=== PATIENT | female | born 1950 | race Caucasian/White ===

== ENCOUNTER → 2017-03-13 | Outpatient (CLI) | payer BC ==
[~2017-03-13] MED LIST: CITRACAL + D CA1 TAB PO; FOSAMAX 70MG TA70 MG PO; GALZIN25 MG PO; NORITATE1% TOP
== END ==
LOC: MC.RAD 14:11
DX: Z12.31 Encounter for screening mammogram for malignant neoplasm of breast (principal)

== ENCOUNTER 2017-06-04 13:09 | Day surgery (SDC) | payer BC ==
[~2017-06-04] VITALS: Ht 162.6 cm; Wt 71.0 kg
[2017-06-04 13:54] VITALS: BP 130/86; PULSE 67; TEMP 98.1
[2017-06-04] MEDS ORDERED: CITRACAL + D CA1 TAB PO (14:13)
[2017-06-04] MEDS ORDERED: GALZIN25 MG PO (14:14)
[2017-06-04] MEDS ORDERED: FOSAMAX 70MG TA70 MG PO (14:15)
[2017-06-04] MEDS ORDERED: NORITATE1% TOP (14:15)
[2017-06-04 15:35] VITALS: BP 84/64; PULSE 52
[2017-06-04 15:50] VITALS: BP 92/64; PULSE 63
[2017-06-04 16:05] VITALS: BP 96/62; PULSE 57
[2017-06-04 16:27] VITALS: BP 92/57; PULSE 53
== END 2017-06-04 16:20 | disposition home or self-care (01) ==
LOC: SDCO 13:09 → OR 13:15 → SDCO 13:15
DX: Z12.11 Encounter for screening for malignant neoplasm of colon (principal); D69.6 Thrombocytopenia, unspecified; Z78.0 Asymptomatic menopausal state; D25.9 Leiomyoma of uterus, unspecified; L71.9 Rosacea, unspecified; M81.0 Age-related osteoporosis without current pathological fracture; E66.3 Overweight; Z68.26 Body mass index [BMI] 26.0-26.9, adult; E78.00 Pure hypercholesterolemia, unspecified
CPT/HCPCS: OP; J2250; J2405; J3010; J7030

== ENCOUNTER → 2018-10-20 | Outpatient (CLI) | payer MEDICARE, BC | LOC: MC.RAD 10:14 | DX: Z12.31 Encounter for screening mammogram for malignant neoplasm of breast (principal) ==

== ENCOUNTER → 2020-09-28 | Outpatient (CLI) | payer MEDICARE, BC | LOC: MC.RAD 09:15 | DX: Z12.31 Encounter for screening mammogram for malignant neoplasm of breast (principal) ==

== ENCOUNTER 2021-11-28 14:56 | Outpatient (CLI) | payer MEDICARE, BC ==
[~2021-11-28] VITALS: Ht 162.6 cm; Wt 73.6 kg
[2021-11-28] MEDS ORDERED: VITAMIN D3400 I1 PO (15:16)
[2021-11-28 15:27] VITALS: BP 136/73; PULSE 52; TEMP 98.2
== END 2021-11-28 15:45 | disposition home or self-care (01) ==
LOC: EUO 14:56
DX: M81.0 Age-related osteoporosis without current pathological fracture (principal)
CPT/HCPCS: J0897

== ENCOUNTER → 2021-12-20 | Outpatient (CLI) | payer MEDICARE, BC ==
[~2021-12-20] MED LIST changes: +VITAMIN D3400 I1 PO
== END ==
LOC: MC.RAD 10:35
DX: Z12.31 Encounter for screening mammogram for malignant neoplasm of breast (principal)

== ENCOUNTER 2022-05-29 14:44 | Outpatient (CLI) | payer MEDICARE, BC ==
[~2022-05-29] VITALS: Ht 162.6 cm; Wt 75.0 kg
[2022-05-29 15:00] VITALS: BP 124/83; PULSE 55; TEMP 97
== END 2022-05-29 15:45 | disposition home or self-care (01) ==
LOC: EUO 14:44
DX: M81.0 Age-related osteoporosis without current pathological fracture (principal)
CPT/HCPCS: J0897

== ENCOUNTER → 2022-12-26 | Outpatient (CLI) | payer MEDICARE, BC ==
[~2022-12-26] VITALS: Ht 162.6 cm; Wt 73.5 kg
[2022-12-26 15:12] VITALS: BP 149/89; PULSE 68; TEMP 98
== END ==
LOC: EUO 15:00
DX: M81.0 Age-related osteoporosis without current pathological fracture (principal)
CPT/HCPCS: J0897

== ENCOUNTER 2023-12-31 12:36 | Outpatient (CLI) | payer MEDICARE, BC ==
[~2023-12-31] VITALS: Ht 162.6 cm; Wt 75.4 kg
[2023-12-31 12:59] VITALS: BP 149/81; PULSE 62; TEMP 97.9
[2023-12-31] MEDS ORDERED: Denosumab 60 MG/ML SYRINGE SQ ONE (13:00)
--- NOTE | 2023-12-31 13:12 | NUR ---
pt tolerated injection well and vs remained within normal limits. pt ambulated independently to main lobby upon discharge. pt free from acute concerns and complaints.
== END 2023-12-31 13:12 | disposition home or self-care (01) ==
LOC: EUO 12:36
DX: M81.0 Age-related osteoporosis without current pathological fracture (principal)
CPT/HCPCS: J0897

== ENCOUNTER 2024-07-01 14:56 | Outpatient (CLI) | payer MEDICARE, BC ==
[~2024-07-01] VITALS: Ht 162.6 cm; Wt 75.7 kg
[2024-07-01] MEDS ORDERED: PHARMASSURE CHE30 MG PO (15:06)
[2024-07-01 15:08] VITALS: BP 131/73; PULSE 67; TEMP 97.9
[2024-07-01] MEDS ORDERED: Denosumab 60 MG/ML SYRINGE SQ ONE (15:15)
== END 2024-07-01 15:31 | disposition home or self-care (01) ==
LOC: EUO 14:56
DX: M81.0 Age-related osteoporosis without current pathological fracture (principal)
CPT/HCPCS: J0897

== ENCOUNTER → 2024-08-04 | Outpatient (CLI) | payer MEDICARE, BC ==
[~2024-08-04] MED LIST changes: +PHARMASSURE CHE30 MG PO
== END ==
LOC: MC.RAD 07:58
DX: Z12.31 Encounter for screening mammogram for malignant neoplasm of breast (principal)